=== PATIENT | male | born 2000 | race Hispanic/Latino ===

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

== ENCOUNTER 2022-04-13 20:28 | Emergency (ER) | payer BC, OTHER ==
[~2022-04-13] VITALS: Ht 175.3 cm; Wt 76.2 kg
[~2022-04-13 20:28] MED LIST changes: +IBUPROFEN IB200 MG PO; +TYLENOL # 31 EA PO
[2022-04-13] MEDS ORDERED: IBUPROFEN 600 MG TAB PO STA (20:55)
[2022-04-13] MEDS ORDERED: IBUPROFEN 600 MG TAB ONE (22:06)
[2022-04-13] MEDS ORDERED: IBUPROFEN600 MG PO (22:06)
[2022-04-13 22:19] VITALS: BP 115/61
== END 2022-04-13 22:18 | disposition home or self-care (01) ==
LOC: FSED 20:34
DX: S62.634A Displaced fracture of distal phalanx of right ring finger, initial encounter for closed fracture (principal); Y93.67 Activity, basketball; Y92.89 Other specified places as the place of occurrence of the external cause; F17.210 Nicotine dependence, cigarettes, uncomplicated
CPT/HCPCS: 99283